=== PATIENT | female | born 1990 | race Caucasian/White ===

== ENCOUNTER → 2021-06-08 | Outpatient (CLI) | payer OTHER ==
--- NOTE | 2021-06-09 08:13 | ECGEPIP ---
[facility] Test Date: 2021-06-08 Pat Name: HA SONG Department: Room: - Gender: Female [employer] Operator: KANA : 1990 Requested By: Sara Branch PMHNP Order Number: [id number] Reading MD: Bao Maddox Measurements Intervals [place] Rate: 100 P: 59 ME: 142 QRS: 44 QRSD: 84 T: 24 QT: 364 QTc: 469 Interpretive Statements Sinus tachycardia, HR 100 bpm Otherwise normal EKG Comparison tracing not on file Electronically Signed on 06-09-2021 8:13:10 EST by aBo Maddox
== END ==
LOC: M EKG 15:08
PROVIDERS: ATTEND Registered Nurse Psychiatric/Mental Health
DX: F15.90 Other stimulant use, unspecified, uncomplicated (principal)

== ENCOUNTER 2022-06-01 09:17 | Emergency (ER) | payer OTHER ==
[~2022-06-01] VITALS: Ht 157.5 cm; Wt 67.1 kg
[2022-06-01 09:18] VITALS: BP 143/91
[2022-06-01] MEDS ORDERED: DIFL50TA PO (09:32)
[2022-06-01] MEDS ORDERED: DIFL150T PO (12:59)
== END 2022-06-01 13:45 | disposition home or self-care (01) ==
LOC: M ED 09:17
DX: N89.8 Other specified noninflammatory disorders of vagina (principal)